=== PATIENT | male | born 1980 | race Hispanic/Latino ===

== ENCOUNTER 2020-12-15 18:00 | Outpatient (CLI) | payer BC | END 2020-12-15 18:01 | disposition home or self-care (01) | LOC: SLEEPLAB 18:00 | PROVIDERS: ATTEND Family Medicine | DX: G47.33 Obstructive sleep apnea (adult) (pediatric) (principal); R53.83 Other fatigue; G47.00 Insomnia, unspecified; R06.83 Snoring | CPT/HCPCS: 95806 ==